=== PATIENT | female | born 1935 | race Caucasian/White ===

== ENCOUNTER 2018-06-07 14:29 | Inpatient (IN) ==
[2018-06-07] MEDS ORDERED: ONDANSETRON 4 MG/2 ML VIAL IV STA (16:06)
[2018-06-07] MEDS ORDERED: PANTOPRAZOLE 40 MG VIAL IV STA (16:06)
[2018-06-07] MEDS ORDERED: METOCLOPRAMIDE 10 MG/2 ML VIAL IV STA (16:06)
[2018-06-07] MEDS ORDERED: DICYCLOMINE 20 MG/2 ML AMP IM ONE (16:06)
[2018-06-07 16:40] LABS: Apearance,Urine Slightly Hazy (Clear); Bacteria,Urine Occasional /HPF (Few); Bilirubin,Urine Negative (Negative); Blood, Urine Negative (Negative); Glucose,Urine (UA) Negative (Negative); Hyaline Casts,Urine 92 /LPF (0-3); Ketones,Urine 5 mg/dL (Negative); Mucus,Urine Occasional /LPF (Occasional); Nitrite,Urine Negative (Negative); Protein,Urine 30 MG/DL; RBC,Urine 1 /HPF (0-4); Squamous Epithelial Cell,Urine Occasional /HPF (0-10); Urine Color Yellow (Yellow); Urine Specific Gravity 1.014 (1.001-1.035); WBC,Urine 2 /HPF (0-6)
[2018-06-07 17:06] LABS: Basophils % 0.4 % (0.0-0.8); Eosinophils # 0.1 10*3/uL (0.0-0.87); Eosinophils % 1.3 % (0.00-10.9); Hemoglobin 13.8 GM/DL (12.0-16.0); Immature Granulocytes % 0.4 %; Immature Granulocytes Absolute 0.04 #; Lymphocytes # 2.5 10*3/uL (1.4-4.0); Mean Corpuscular HGB Conc 33.7 GM/DL (32-36); Mean Corpuscular Hemoglobin 32 PG (27-34); Mean Corpuscular Volume 94.3 FL (87-102); Mean Platelet Volume 9.2 FL (9.6-12.0); Monocytes # 0.9 10*3/uL (0.11-0.8); Monocytes % 8.3 % (1.7-12.7); Neutrophils # 6.8 10*3/uL (1.4-7.4); Neutrophils % 65.6 % (38.7-73.9); Platelet Count 451 T/CUMM (130-400); Red Blood Count 4.35 MC/CUMM (3.8-5.5); Red Cell Distribution Width 12.3 % (9.3-17.3); White Blood Count 10.4 T/CUMM (4-12)
[2018-06-07 17:22] LABS: Alanine Aminotransferase 27 U/L (13-56); Albumin 3.2 G/DL (3.4-5.0); Alkaline Phosphatase 225 U/L (45-117); Amylase 101 U/L (25-115); Aspartate Amino Transferase 40 U/L (0-37); Blood Urea Nitrogen 34 MG/DL (7-18); Calcium 9.8 MG/DL (8.5-10.1); Glucose 83 MG/DL (74-106); Osmolality,Calculated 279.8 MOS/KG (273-304); Potassium 4.8 MMOL/L (3.5-5.1); Sodium 137 MMOL/L (136-145); Total Protein 8.4 G/DL (6.4-8.3); Troponin I < 0.015 NG/ML (0.00-0.045)
[2018-06-07 17:28] LABS: INR 6.5; Partial Thromboplastin Time 60.6 SECS (0-40)
[2018-06-07] MEDS: hydrALAZINE 20 MG/1 ML VIAL IV SCH (19:45)
[2018-06-07] MEDS: SODIUM CHLORIDE 0.9% 1,000 ML IV SCH (19:45)
[2018-06-08] MEDS: hydrALAZINE 20 MG/1 ML VIAL IV SCH ×5 (00:31→23:56)
[2018-06-08 05:27] LABS: Basophils % 0.5 % (0.0-0.8); Eosinophils # 0.1 10*3/uL (0.0-0.87); Eosinophils % 1.5 % (0.00-10.9); Hemoglobin 11.8 GM/DL (12.0-16.0); Immature Granulocytes % 0.4 %; Immature Granulocytes Absolute 0.03 #; Lymphocytes # 1.8 10*3/uL (1.4-4.0); Lymphocytes % 23.5 % (21.3-54.2); Mean Corpuscular HGB Conc 32.8 GM/DL (32-36); Mean Corpuscular Hemoglobin 31 PG (27-34); Mean Corpuscular Volume 95.5 FL (87-102); Mean Platelet Volume 9.1 FL (9.6-12.0); Monocytes # 0.7 10*3/uL (0.11-0.8); Monocytes % 8.9 % (1.7-12.7); Neutrophils # 5.1 10*3/uL (1.4-7.4); Neutrophils % 65.2 % (38.7-73.9); Platelet Count 343 T/CUMM (130-400); Red Blood Count 3.77 MC/CUMM (3.8-5.5); Red Cell Distribution Width 12.5 % (9.3-17.3); White Blood Count 7.8 T/CUMM (4-12)
[2018-06-08] MEDS: LEVOTHYROXINE 25 MCG TABLET PO SCH (05:34)
[2018-06-08 05:53] LABS: PT Patient Result 59.3 SECS
[2018-06-08 05:54] LABS: Partial Thromboplastin Time 66.8 SECS (0-40)
[2018-06-08 05:57] LABS: Calcium 8.8 MG/DL (8.5-10.1); Osmolality,Calculated 285.3 MOS/KG (273-304); Potassium 3.8 MMOL/L (3.5-5.1)
[2018-06-08] MEDS: SODIUM CHLORIDE 0.9% 1,000 ML IV SCH (08:51)
[2018-06-08] MEDS: PANTOPRAZOLE 40 MG VIAL IV SCH (09:18)
[2018-06-08] MEDS: FUROSEMIDE 20 MG/2 ML VIAL IV SCH (09:18)
[2018-06-08] MEDS: ATENOLOL 100 MG TABLET PO SCH (09:19)
[2018-06-08] MEDS: ONDANSETRON 4 MG/2 ML VIAL IV PRN (23:54)
[2018-06-08] MEDS: SODIUM CHLORIDE 0.45% 1,000 ML IV SCH (23:55)
[2018-06-09 05:31] LABS: Basophils % 0.5 % (0.0-0.8); Eosinophils # 0.1 10*3/uL (0.0-0.87); Eosinophils % 1.5 % (0.00-10.9); Hematocrit 35.7 VOL% (35.7-47.0); Hemoglobin 11.9 GM/DL (12.0-16.0); Immature Granulocytes % 0.5 %; Immature Granulocytes Absolute 0.03 #; Lymphocytes # 1.4 10*3/uL (1.4-4.0); Mean Corpuscular HGB Conc 33.3 GM/DL (32-36); Mean Corpuscular Hemoglobin 32 PG (27-34); Mean Corpuscular Volume 95.7 FL (87-102); Mean Platelet Volume 9.1 FL (9.6-12.0); Monocytes # 0.6 10*3/uL (0.11-0.8); Monocytes % 9.1 % (1.7-12.7); Neutrophils # 4.4 10*3/uL (1.4-7.4); Neutrophils % 67.4 % (38.7-73.9); Platelet Count 328 T/CUMM (130-400); Red Blood Count 3.73 MC/CUMM (3.8-5.5); Red Cell Distribution Width 12.4 % (9.3-17.3); White Blood Count 6.6 T/CUMM (4-12)
[2018-06-09] MEDS: hydrALAZINE 20 MG/1 ML VIAL IV SCH ×3 (05:55→17:31)
[2018-06-09 05:57] LABS: Albumin 2.3 G/DL (3.4-5.0); Bilirubin,Total 0.6 MG/DL (0.2-1.0); Calcium 8.3 MG/DL (8.5-10.1); Osmolality,Calculated 283.1 MOS/KG (273-304); Potassium 3.3 MMOL/L (3.5-5.1); Total Protein 6.3 G/DL (6.4-8.3)
[2018-06-09 06:12] LABS: INR 6.8; PT Patient Result 66.5 SECS
[2018-06-09] MEDS: LEVOTHYROXINE 25 MCG TABLET PO SCH (06:45)
[2018-06-09] MEDS: ONDANSETRON 4 MG/2 ML VIAL IV PRN (06:57)
[2018-06-09] MEDS: PANTOPRAZOLE 40 MG VIAL IV SCH (09:05)
[2018-06-09] MEDS: FUROSEMIDE 20 MG/2 ML VIAL IV SCH (09:05)
[2018-06-09] MEDS: ATENOLOL 100 MG TABLET PO SCH (09:09)
[2018-06-09] MEDS: SODIUM CHLORIDE 0.45% 1,000 ML IV SCH (13:11)
[2018-06-09] MEDS ORDERED: PHYTONADIONE 5 MG/5 ML ORAL.SYR PO ONE (13:28)
[2018-06-09] MEDS: POTASSIUM CHLORIDE INJ 40 MEQ in SODIUM CHLORIDE 0.45% 1,000 ML IV SCH (16:25)
[2018-06-10] MEDS: hydrALAZINE 20 MG/1 ML VIAL IV SCH ×3 (00:47→12:57)
[2018-06-10 05:35] LABS: Albumin 2.3 G/DL (3.4-5.0); Bilirubin,Total 1.3 MG/DL (0.2-1.0); Calcium 8.8 MG/DL (8.5-10.1); Osmolality,Calculated 275.4 MOS/KG (273-304); Potassium 3.9 MMOL/L (3.5-5.1); Total Protein 6.2 G/DL (6.4-8.3)
[2018-06-10 05:36] LABS: INR 1.6; PT Patient Result 16.6 SECS
[2018-06-10 05:42] LABS: Basophils % 0.4 % (0.0-0.8); Eosinophils # 0.1 10*3/uL (0.0-0.87); Eosinophils % 1.7 % (0.00-10.9); Hematocrit 35.2 VOL% (35.7-47.0); Immature Granulocytes % 0.4 %; Immature Granulocytes Absolute 0.03 #; Lymphocytes # 1.5 10*3/uL (1.4-4.0); Lymphocytes % 21.4 % (21.3-54.2); Mean Corpuscular HGB Conc 34.1 GM/DL (32-36); Mean Corpuscular Hemoglobin 32 PG (27-34); Mean Corpuscular Volume 93.1 FL (87-102); Mean Platelet Volume 9.3 FL (9.6-12.0); Monocytes # 0.7 10*3/uL (0.11-0.8); Monocytes % 9.8 % (1.7-12.7); Neutrophils # 4.6 10*3/uL (1.4-7.4); Neutrophils % 66.3 % (38.7-73.9); Platelet Count 329 T/CUMM (130-400); Red Blood Count 3.78 MC/CUMM (3.8-5.5); Red Cell Distribution Width 12.5 % (9.3-17.3)
[2018-06-10] MEDS: LEVOTHYROXINE 25 MCG TABLET PO SCH (06:22)
[2018-06-10] MEDS: POTASSIUM CHLORIDE INJ 40 MEQ in SODIUM CHLORIDE 0.45% 1,000 ML IV SCH ×2 (06:24→21:53)
[2018-06-10] MEDS: ATENOLOL 100 MG TABLET PO SCH (09:23)
[2018-06-10] MEDS: FUROSEMIDE 20 MG/2 ML VIAL IV SCH (09:24)
[2018-06-10] MEDS: PANTOPRAZOLE 40 MG VIAL IV SCH (09:27)
[2018-06-10] MEDS ORDERED: POLYETHYLENE GLYCOL POWDER 17 GM PACK PO ONE (16:27)
[2018-06-10] MEDS: ONDANSETRON 4 MG/2 ML VIAL IV PRN (17:58)
[2018-06-11 04:47] LABS: INR 1.4
[2018-06-11 05:36] LABS: Albumin 2.3 G/DL (3.4-5.0); Bilirubin,Total 0.7 MG/DL (0.2-1.0); Calcium 8.4 MG/DL (8.5-10.1); Osmolality,Calculated 278.1 MOS/KG (273-304); Potassium 3.9 MMOL/L (3.5-5.1); Total Protein 6.2 G/DL (6.4-8.3)
[2018-06-11] MEDS: LEVOTHYROXINE 25 MCG TABLET PO SCH (06:23)
[2018-06-11] MEDS ORDERED: LIDOCAINE 2% 5 ML VIAL ONE (10:00)
[2018-06-11] MEDS ORDERED: PROPOFOL 200 MG/20 ML VIAL IV ONE (10:00)
[2018-06-11] MEDS: ATENOLOL 100 MG TABLET PO SCH (11:23)
[2018-06-11] MEDS: PANTOPRAZOLE 40 MG VIAL IV SCH (11:23)
[2018-06-11] MEDS: POTASSIUM CHLORIDE INJ 40 MEQ in SODIUM CHLORIDE 0.45% 1,000 ML IV SCH (12:05)
[2018-06-12] MEDS: ONDANSETRON 4 MG/2 ML VIAL IV PRN ×3 (04:30→16:38)
[2018-06-12] MEDS: POTASSIUM CHLORIDE INJ 40 MEQ in SODIUM CHLORIDE 0.45% 1,000 ML IV SCH ×3 (04:31→17:55)
[2018-06-12 05:17] LABS: Basophils % 0.3 % (0.0-0.8); Eosinophils # 0.1 10*3/uL (0.0-0.87); Eosinophils % 1.3 % (0.00-10.9); Hematocrit 32.2 VOL% (35.7-47.0); Hemoglobin 10.6 GM/DL (12.0-16.0); Immature Granulocytes % 0.3 %; Immature Granulocytes Absolute 0.02 #; Lymphocytes # 1.5 10*3/uL (1.4-4.0); Lymphocytes % 25.5 % (21.3-54.2); Mean Corpuscular HGB Conc 32.9 GM/DL (32-36); Mean Corpuscular Hemoglobin 31 PG (27-34); Mean Platelet Volume 9.2 FL (9.6-12.0); Monocytes # 0.6 10*3/uL (0.11-0.8); Monocytes % 10.2 % (1.7-12.7); Neutrophils # 3.7 10*3/uL (1.4-7.4); Neutrophils % 62.4 % (38.7-73.9); Platelet Count 318 T/CUMM (130-400); Red Blood Count 3.39 MC/CUMM (3.8-5.5)
[2018-06-12 05:22] LABS: PT Patient Result 10.8 SECS
[2018-06-12 05:52] LABS: Albumin 2.1 G/DL (3.4-5.0); Bilirubin,Total 0.6 MG/DL (0.2-1.0); Calcium 8.3 MG/DL (8.5-10.1); Osmolality,Calculated 282.8 MOS/KG (273-304); Potassium 4.3 MMOL/L (3.5-5.1); Total Protein 5.6 G/DL (6.4-8.3)
[2018-06-12] MEDS: LEVOTHYROXINE 25 MCG TABLET PO SCH (06:14)
[2018-06-12] MEDS: PANTOPRAZOLE 40 MG VIAL IV SCH (09:44)
[2018-06-12] MEDS: ATENOLOL 100 MG TABLET PO SCH (09:44)
[2018-06-12] MEDS ORDERED: POLYETHYLENE GLYCOL POWDER 17 GM PACK PO PRN (18:37)
[2018-06-13] MEDS: ONDANSETRON 4 MG/2 ML VIAL IV PRN ×3 (04:58→16:17)
[2018-06-13 05:34] LABS: Basophils % 0.6 % (0.0-0.8); Eosinophils # 0.1 10*3/uL (0.0-0.87); Eosinophils % 1.2 % (0.00-10.9); Hematocrit 33.4 VOL% (35.7-47.0); Hemoglobin 10.8 GM/DL (12.0-16.0); Immature Granulocytes % 0.6 %; Immature Granulocytes Absolute 0.04 #; Lymphocytes # 1.8 10*3/uL (1.4-4.0); Lymphocytes % 24.8 % (21.3-54.2); Mean Corpuscular HGB Conc 32.3 GM/DL (32-36); Mean Corpuscular Hemoglobin 32 PG (27-34); Mean Corpuscular Volume 97.7 FL (87-102); Mean Platelet Volume 8.8 FL (9.6-12.0); Monocytes # 0.6 10*3/uL (0.11-0.8); Monocytes % 8.4 % (1.7-12.7); Neutrophils # 4.7 10*3/uL (1.4-7.4); Neutrophils % 64.4 % (38.7-73.9); Platelet Count 289 T/CUMM (130-400); Red Blood Count 3.42 MC/CUMM (3.8-5.5); Red Cell Distribution Width 13.2 % (9.3-17.3); White Blood Count 7.2 T/CUMM (4-12)
[2018-06-13 06:13] LABS: Albumin 2.5 G/DL (3.4-5.0); Bilirubin,Total 0.9 MG/DL (0.2-1.0); Calcium 8.7 MG/DL (8.5-10.1); Osmolality,Calculated 281.1 MOS/KG (273-304); Potassium 4.4 MMOL/L (3.5-5.1); Total Protein 6.5 G/DL (6.4-8.3)
[2018-06-13] MEDS: LEVOTHYROXINE 25 MCG TABLET PO SCH (07:07)
[2018-06-13] MEDS: ATENOLOL 100 MG TABLET PO SCH (09:05)
[2018-06-13] MEDS: POTASSIUM CHLORIDE INJ 40 MEQ in SODIUM CHLORIDE 0.45% 1,000 ML IV SCH ×2 (09:05→21:34)
[2018-06-13] MEDS: PANTOPRAZOLE 40 MG VIAL IV SCH (09:05)
[2018-06-13] MEDS: ALUM/MAG/SIMETH/LIDO VISC 1:1 30 ML BOTTLE PO SCH ×2 (17:27→21:34)
[2018-06-14] MEDS: ONDANSETRON 4 MG/2 ML VIAL IV PRN (03:58)
[2018-06-14 04:55] LABS: Basophils % 0.3 % (0.0-0.8); Eosinophils # 0.1 10*3/uL (0.0-0.87); Eosinophils % 1.3 % (0.00-10.9); Hematocrit 29.3 VOL% (35.7-47.0); Hemoglobin 9.5 GM/DL (12.0-16.0); Immature Granulocytes % 0.4 %; Immature Granulocytes Absolute 0.03 #; Lymphocytes # 1.6 10*3/uL (1.4-4.0); Lymphocytes % 20.5 % (21.3-54.2); Mean Corpuscular HGB Conc 32.4 GM/DL (32-36); Mean Corpuscular Hemoglobin 31 PG (27-34); Mean Corpuscular Volume 96.7 FL (87-102); Mean Platelet Volume 9.4 FL (9.6-12.0); Monocytes # 0.9 10*3/uL (0.11-0.8); Monocytes % 12.2 % (1.7-12.7); Neutrophils % 65.3 % (38.7-73.9); Platelet Count 247 T/CUMM (130-400); Red Blood Count 3.03 MC/CUMM (3.8-5.5); Red Cell Distribution Width 13.2 % (9.3-17.3); White Blood Count 7.7 T/CUMM (4-12)
[2018-06-14 05:02] LABS: PT Patient Result 10.5 SECS
[2018-06-14] MEDS ORDERED: ceFAZolin 1,000 MG in SYRINGE 1 EACH IV ONE (07:00)
[2018-06-14] MEDS: ALUM/MAG/SIMETH/LIDO VISC 1:1 30 ML BOTTLE PO SCH (07:32)
[2018-06-14] MEDS: LEVOTHYROXINE 25 MCG TABLET PO SCH (07:32)
[2018-06-14] MEDS ORDERED: BUPIVACAINE 0.25% /EPI 10 ML VIAL ONE (08:23)
[2018-06-14] MEDS ORDERED: LIDOCAINE 1%/EPI INJ 20 ML VIAL ONE (08:23)
[2018-06-14] MEDS ORDERED: HEPARIN 5,000 UNIT/1 ML VIAL ONE (08:23)
[2018-06-14] MEDS ORDERED: PROPOFOL 200 MG/20 ML VIAL IV ONE (10:38)
[2018-06-14] MEDS ORDERED: fentaNYL 100 MCG/2 ML VIAL ONE (10:39)
[2018-06-14] MEDS ORDERED: MIDAZOLAM 2 MG/2 ML VIAL ONE (10:39)
[2018-06-14] MEDS: ATENOLOL 100 MG TABLET PO SCH (11:16)
[2018-06-14] MEDS: PANTOPRAZOLE 40 MG VIAL IV SCH (11:16)
[2018-06-14 13:19] VITALS: BP 116/66
[2018-06-14] MEDS: POTASSIUM CHLORIDE INJ 40 MEQ in SODIUM CHLORIDE 0.45% 1,000 ML IV SCH (13:21)
== END 2018-06-14 14:07 | disposition home health service (06) | DRG 374 ==
LOC: N.ED 14:29 → N.EDINP 18:17 → N.2E 19:02
PROVIDERS: ADMIT Internal Medicine; ATTEND Internal Medicine

== ENCOUNTER 2018-07-30 15:22 | Inpatient (IN) ==
[2018-07-30 18:22] LABS: Basophils % 0.4 % (0.0-0.8); Eosinophils # 0.2 10*3/uL (0.0-0.87); Eosinophils % 1.7 % (0.00-10.9); Hemoglobin 11.7 GM/DL (12.0-16.0); Immature Granulocytes % 2.1 %; Immature Granulocytes Absolute 0.19 #; Lymphocytes # 2.6 10*3/uL (1.4-4.0); Lymphocytes % 29.1 % (21.3-54.2); Mean Corpuscular HGB Conc 32.5 GM/DL (32-36); Mean Corpuscular Hemoglobin 32 PG (27-34); Mean Platelet Volume 9.4 FL (9.6-12.0); Monocytes # 0.2 10*3/uL (0.11-0.8); Monocytes % 2.5 % (1.7-12.7); Neutrophils # 5.8 10*3/uL (1.4-7.4); Neutrophils % 64.2 % (38.7-73.9); Platelet Count 392 T/CUMM (130-400); Red Blood Count 3.71 MC/CUMM (3.8-5.5); Red Cell Distribution Width 13.9 % (9.3-17.3); White Blood Count 9.1 T/CUMM (4-12)
[2018-07-30] MEDS ORDERED: SODIUM CHLORIDE 0.9% 1,000 ML IV STA ×2 (18:22→20:18)
[2018-07-30] MEDS ORDERED: ONDANSETRON 4 MG/2 ML VIAL IV ONE (18:22)
[2018-07-30 18:42] LABS: Bilirubin,Total 0.6 MG/DL (0.2-1.0); Calcium 9.1 MG/DL (8.5-10.1); Osmolality,Calculated 288.5 MOS/KG (273-304); Total Protein 7.7 G/DL (6.4-8.3)
[2018-07-30 18:47] LABS: Potassium 6.8 MMOL/L (3.5-5.1)
[2018-07-30] MEDS ORDERED: DEXTROSE 50% 25 GM/50 ML VIAL IV STA (19:51)
[2018-07-30] MEDS ORDERED: INSULIN REGULAR 100 UNIT/ML SUBCUT STA (19:51)
[2018-07-30] MEDS ORDERED: DEXTROSE 50% 25 GM/50 ML SYRINGE IV ONE (19:55)
[2018-07-30 20:58] LABS: Apearance,Urine CLEAR (Clear); Bilirubin,Urine Negative (Negative); Blood, Urine Negative (Negative); Glucose,Urine (UA) >=500 mg/dL (Negative); Hyaline Casts,Urine 3 /LPF (0-3); Ketones,Urine Negative (Negative); Mucus,Urine Occasional /LPF (Occasional); Nitrite,Urine Negative (Negative); Protein,Urine Negative; Squamous Epithelial Cell,Urine Occasional /HPF (0-10); Urine Color Yellow (Yellow); Urine Specific Gravity 1.013 (1.001-1.035); Urine Urobilinogen < 2.0 EU/DL (0.2-1.0); WBC,Urine 1 /HPF (0-6)
[2018-07-30 21:01] LABS: Band Neutrophils 1 % (0-10); Eosinophils 1 % (0-10); Lymphocytes 26 % (20-55); Metamyelocytes 1 %; Segmented Neutrophils 71 % (50-85); Total Cells Counted 100
[2018-07-30 21:02] LABS: Anisocytosis 1+; Macrocytosis Slight
[2018-07-30 21:03] LABS: Ovalocytes Few; Spherocytes Slight
[2018-07-30 21:04] LABS: Platelet Estimate Normal
[2018-07-30 23:23] LABS: Basophils % 0.3 % (0.0-0.8); Eosinophils # 0.1 10*3/uL (0.0-0.87); Eosinophils % 1.7 % (0.00-10.9); Hematocrit 30.3 VOL% (35.7-47.0); Hemoglobin 9.8 GM/DL (12.0-16.0); Immature Granulocytes % 2.9 %; Mean Corpuscular HGB Conc 32.3 GM/DL (32-36); Mean Corpuscular Hemoglobin 32 PG (27-34); Mean Corpuscular Volume 98.4 FL (87-102); Mean Platelet Volume 9.6 FL (9.6-12.0); Monocytes # 0.2 10*3/uL (0.11-0.8); Monocytes % 2.6 % (1.7-12.7); Neutrophils # 4.4 10*3/uL (1.4-7.4); Neutrophils % 63.5 % (38.7-73.9); Platelet Count 283 T/CUMM (130-400); Red Blood Count 3.08 MC/CUMM (3.8-5.5); Red Cell Distribution Width 13.9 % (9.3-17.3); White Blood Count 6.9 T/CUMM (4-12)
[2018-07-30 23:39] LABS: Albumin 2.5 G/DL (3.4-5.0); Bilirubin,Total 0.4 MG/DL (0.2-1.0); Calcium 6.7 MG/DL (8.5-10.1); Osmolality,Calculated 296.5 MOS/KG (273-304); Potassium 5.2 MMOL/L (3.5-5.1); Total Protein 6.4 G/DL (6.4-8.3)
[2018-07-30] MEDS: DEXTROSE 5% NACL 0.45% 1,000 ML IV SCH (23:46)
[2018-07-31] MEDS: ONDANSETRON 4 MG/2 ML VIAL IV PRN (06:07)
[2018-07-31] MEDS: DEXTROSE 5% NACL 0.45% 1,000 ML IV SCH ×4 (06:08→20:15)
[2018-07-31] MEDS: ACETAMINOPHEN 325 MG TABLET PO PRN (06:12)
[2018-07-31] MEDS ORDERED: PANTOPRAZOLE 40 MG TABLET PO SCH (09:00)
[2018-07-31] MEDS: SODIUM POLYSTYRENE SULFATE 15 GM/60 ML BOTTLE PO SCH ×2 (09:57→13:48)
[2018-07-31] MEDS: HYDROmorphone 2 MG/1 ML VIAL IV PRN (09:59)
[2018-07-31] MEDS ORDERED: PROMETHAZINE 25 MG/1 ML VIAL IM PRN (11:49)
[2018-07-31 13:15] LABS: Basophils % 0.3 % (0.0-0.8); Eosinophils # 0.1 10*3/uL (0.0-0.87); Eosinophils % 1.8 % (0.00-10.9); Hemoglobin 9.7 GM/DL (12.0-16.0); Immature Granulocytes % 1.7 %; Immature Granulocytes Absolute 0.13 #; Lymphocytes # 1.7 10*3/uL (1.4-4.0); Lymphocytes % 22.5 % (21.3-54.2); Mean Corpuscular HGB Conc 32.3 GM/DL (32-36); Mean Corpuscular Hemoglobin 32 PG (27-34); Mean Platelet Volume 9.4 FL (9.6-12.0); Monocytes # 0.1 10*3/uL (0.11-0.8); Monocytes % 1.7 % (1.7-12.7); Neutrophils # 5.5 10*3/uL (1.4-7.4); Platelet Count 290 T/CUMM (130-400); Red Blood Count 3.06 MC/CUMM (3.8-5.5); Red Cell Distribution Width 13.9 % (9.3-17.3); White Blood Count 7.6 T/CUMM (4-12)
[2018-07-31 13:38] LABS: Albumin 2.7 G/DL (3.4-5.0); Bilirubin,Total 0.4 MG/DL (0.2-1.0); Calcium 7.9 MG/DL (8.5-10.1); Potassium 4.4 MMOL/L (3.5-5.1); Total Protein 5.9 G/DL (6.4-8.3)
[2018-07-31] MEDS: PANTOPRAZOLE 40 MG VIAL IV SCH (13:49)
[2018-07-31 18:38] LABS: Eosinophils 1 % (0-10); Lymphocytes 14 % (20-55); Segmented Neutrophils 84 % (50-85); Total Cells Counted 100
[2018-07-31 18:40] LABS: Platelet Estimate Normal
[2018-08-01] MEDS: DEXTROSE 5% NACL 0.45% 1,000 ML IV SCH ×5 (03:12→17:54)
[2018-08-01 05:40] LABS: Basophils % 0.4 % (0.0-0.8); Eosinophils # 0.2 10*3/uL (0.0-0.87); Eosinophils % 2.1 % (0.00-10.9); Hematocrit 30.3 VOL% (35.7-47.0); Hemoglobin 9.3 GM/DL (12.0-16.0); Immature Granulocytes % 0.8 %; Immature Granulocytes Absolute 0.06 #; Lymphocytes # 2.1 10*3/uL (1.4-4.0); Lymphocytes % 29.1 % (21.3-54.2); Mean Corpuscular HGB Conc 30.7 GM/DL (32-36); Mean Corpuscular Hemoglobin 31 PG (27-34); Mean Corpuscular Volume 99.7 FL (87-102); Mean Platelet Volume 9.7 FL (9.6-12.0); Monocytes # 0.2 10*3/uL (0.11-0.8); Monocytes % 2.2 % (1.7-12.7); Neutrophils # 4.7 10*3/uL (1.4-7.4); Neutrophils % 65.4 % (38.7-73.9); Platelet Count 291 T/CUMM (130-400); Red Blood Count 3.04 MC/CUMM (3.8-5.5); Red Cell Distribution Width 14.3 % (9.3-17.3); White Blood Count 7.2 T/CUMM (4-12)
[2018-08-01 06:54] LABS: Band Neutrophils 2 % (0-10); Eosinophils 3 % (0-10); Lymphocytes 28 % (20-55); Segmented Neutrophils 65 % (50-85); Total Cells Counted 100
[2018-08-01 06:55] LABS: Macrocytosis Slight; Ovalocytes Few
[2018-08-01 06:56] LABS: Acanthocytes Few; Platelet Estimate Normal
[2018-08-01 07:06] LABS: Albumin 2.6 G/DL (3.4-5.0); Bilirubin,Total 1.28 MG/DL (0.2-1.0); Calcium 7.5 MG/DL (8.5-10.1); Osmolality,Calculated 287.4 MOS/KG (273-304); Potassium 4.6 MMOL/L (3.5-5.1); Total Protein 5.6 G/DL (6.4-8.3)
[2018-08-01] MEDS: ONDANSETRON 4 MG/2 ML VIAL IV PRN ×2 (07:30→17:49)
[2018-08-01] MEDS: HYDROmorphone 2 MG/1 ML VIAL IV PRN ×2 (08:58→19:24)
[2018-08-01] MEDS: PANTOPRAZOLE 40 MG VIAL IV SCH (09:01)
[2018-08-02] MEDS: ONDANSETRON 4 MG/2 ML VIAL IV PRN (00:34)
[2018-08-02] MEDS: DEXTROSE 5% NACL 0.45% 1,000 ML IV SCH ×2 (00:34→09:09)
[2018-08-02 05:13] LABS: Basophils % 0.3 % (0.0-0.8); Eosinophils # 0.1 10*3/uL (0.0-0.87); Eosinophils % 2.1 % (0.00-10.9); Hematocrit 24.5 VOL% (35.7-47.0); Hemoglobin 7.6 GM/DL (12.0-16.0); Immature Granulocytes % 0.6 %; Immature Granulocytes Absolute 0.02 #; Lymphocytes # 1.1 10*3/uL (1.4-4.0); Lymphocytes % 33.3 % (21.3-54.2); Mean Corpuscular Hemoglobin 31 PG (27-34); Mean Corpuscular Volume 98.8 FL (87-102); Mean Platelet Volume 9.7 FL (9.6-12.0); Monocytes # 0.1 10*3/uL (0.11-0.8); Monocytes % 3.5 % (1.7-12.7); Neutrophils % 60.2 % (38.7-73.9); Platelet Count 181 T/CUMM (130-400); Red Blood Count 2.48 MC/CUMM (3.8-5.5); Red Cell Distribution Width 13.9 % (9.3-17.3); White Blood Count 3.4 T/CUMM (4-12)
[2018-08-02 05:27] LABS: Calcium 7.3 MG/DL (8.5-10.1); Osmolality,Calculated 281.4 MOS/KG (273-304)
[2018-08-02 05:48] LABS: Ovalocytes Few
[2018-08-02 05:49] LABS: Acanthocytes Few; Burr Cells Slight; Hypochromasia Slight; Macrocytosis Slight; Platelet Estimate Normal
[2018-08-02] MEDS ORDERED: SODIUM CHLORIDE 0.9% 1,000 ML IV PRN (09:10)
[2018-08-02] MEDS: PANTOPRAZOLE 40 MG VIAL IV SCH (10:40)
[2018-08-02] MEDS: DEXT 5% NACL 0.45% KCL 20 MEQ 20 MEQ/1,000 ML BAG IV SCH (10:41)
[2018-08-02] MEDS ORDERED: POTASSIUM CHLORIDE 20 MEQ PACK PO ONE (21:00)
[2018-08-03] MEDS: ONDANSETRON 4 MG/2 ML VIAL IV PRN ×2 (06:01→15:40)
[2018-08-03] MEDS: DEXT 5% NACL 0.45% KCL 20 MEQ 20 MEQ/1,000 ML BAG IV SCH ×4 (06:04→20:52)
[2018-08-03 07:28] LABS: Calcium 7.8 MG/DL (8.5-10.1); Osmolality,Calculated 284.8 MOS/KG (273-304); Potassium 3.8 MMOL/L (3.5-5.1)
[2018-08-03 07:37] LABS: Basophils % 0.5 % (0.0-0.8); Eosinophils # 0.1 10*3/uL (0.0-0.87); Eosinophils % 2.9 % (0.00-10.9); Hematocrit 32.2 VOL% (35.7-47.0); Hemoglobin 10.7 GM/DL (12.0-16.0); Lymphocytes # 0.9 10*3/uL (1.4-4.0); Lymphocytes % 41.1 % (21.3-54.2); Mean Corpuscular HGB Conc 33.2 GM/DL (32-36); Mean Corpuscular Hemoglobin 31 PG (27-34); Mean Corpuscular Volume 94.4 FL (87-102); Mean Platelet Volume 9.2 FL (9.6-12.0); Monocytes # 0.1 10*3/uL (0.11-0.8); Monocytes % 5.3 % (1.7-12.7); Neutrophils # 1.1 10*3/uL (1.4-7.4); Neutrophils % 50.2 % (38.7-73.9); Platelet Count 152 T/CUMM (130-400); Red Blood Count 3.41 MC/CUMM (3.8-5.5); Red Cell Distribution Width 14.5 % (9.3-17.3); White Blood Count 2.1 T/CUMM (4-12)
[2018-08-03 08:04] LABS: Hypochromasia 1+; Macrocytosis Slight; Ovalocytes Slight; Platelet Estimate Normal
[2018-08-03] MEDS: PANTOPRAZOLE 40 MG VIAL IV SCH (08:33)
[2018-08-03 08:47] LABS: Bilirubin,Total 0.9 MG/DL (0.2-1.0); Calcium 7.6 MG/DL (8.5-10.1); Osmolality,Calculated 281.1 MOS/KG (273-304); Potassium 3.8 MMOL/L (3.5-5.1); Total Protein 5.5 G/DL (6.4-8.3)
[2018-08-03] MEDS ORDERED: ONDANSETRON 4 MG/2 ML VIAL ONE (09:00)
[2018-08-03] MEDS ORDERED: NEOSTIGMINE 10 MG/10 ML VIAL ONE (09:00)
[2018-08-03] MEDS ORDERED: ETOMIDATE 20 MG/10 ML VIAL IV ONE (09:00)
[2018-08-03] MEDS ORDERED: PHENYLEPHRINE 1 MG/10 ML SYRINGE IV ONE (09:00)
[2018-08-03] MEDS ORDERED: GLYCOPYRROLATE 0.4 MG/2 ML VIAL ONE (09:00)
[2018-08-03] MEDS ORDERED: ROCURONIUM 100 MG/10 ML VIAL IV ONE (09:00)
[2018-08-03] MEDS ORDERED: ESMOLOL 100 MG/10 ML VIAL IV ONE (09:00)
[2018-08-03] MEDS ORDERED: fentaNYL 100 MCG/2 ML VIAL ONE (12:10)
[2018-08-03] MEDS ORDERED: INDOMETHACIN SUPP 50 MG SUPP RECTAL ONE (12:28)
[2018-08-03] MEDS ORDERED: GLUCAGON 1 MG VIAL ONE (14:04)
[2018-08-03] MEDS ORDERED: NALOXONE 0.4 MG/ML VIAL ONE (14:31)
[2018-08-03] MEDS: HYDROmorphone 2 MG/1 ML VIAL IV PRN (17:16)
[2018-08-04] MEDS: DEXT 5% NACL 0.45% KCL 20 MEQ 20 MEQ/1,000 ML BAG IV SCH ×3 (05:03→20:57)
[2018-08-04 05:04] LABS: Eosinophils % 3.9 % (0.00-10.9); Hematocrit 29.9 VOL% (35.7-47.0); Hemoglobin 9.6 GM/DL (12.0-16.0); Lymphocytes # 0.8 10*3/uL (1.4-4.0); Lymphocytes % 76.7 % (21.3-54.2); Mean Corpuscular HGB Conc 32.1 GM/DL (32-36); Mean Corpuscular Hemoglobin 30 PG (27-34); Mean Corpuscular Volume 94.6 FL (87-102); Mean Platelet Volume 9.9 FL (9.6-12.0); Monocytes # 0.1 10*3/uL (0.11-0.8); Monocytes % 5.8 % (1.7-12.7); Neutrophils # 0.1 10*3/uL (1.4-7.4); Neutrophils % 13.6 % (38.7-73.9); Platelet Count 146 T/CUMM (130-400); Red Blood Count 3.16 MC/CUMM (3.8-5.5); Red Cell Distribution Width 14.2 % (9.3-17.3)
[2018-08-04 05:07] LABS: Albumin 1.7 G/DL (3.4-5.0); Bilirubin,Total 0.6 MG/DL (0.2-1.0); Calcium 7.3 MG/DL (8.5-10.1); Osmolality,Calculated 281.3 MOS/KG (273-304); Potassium 3.9 MMOL/L (3.5-5.1); Total Protein 4.6 G/DL (6.4-8.3)
[2018-08-04 06:39] LABS: Atypical Lymphocytes Few; Band Neutrophils 2 % (0-10); Eosinophils 3 % (0-10); Lymphocytes 67 % (20-55); Segmented Neutrophils 20 % (50-85); Total Cells Counted 100
[2018-08-04 06:40] LABS: Hypochromasia 1+; Macrocytosis Slight; Ovalocytes Few; Platelet Estimate Adequate
[2018-08-04] MEDS: PANTOPRAZOLE 40 MG VIAL IV SCH (09:09)
[2018-08-04] MEDS: ONDANSETRON 4 MG/2 ML VIAL IV PRN (09:10)
[2018-08-04] MEDS: FILGRASTIM-SNDZ 300 MCG/0.5 ML SYRINGE SUBCUT SCH (12:49)
[2018-08-04] MEDS: HYDROmorphone 2 MG/1 ML VIAL IV PRN (23:20)
[2018-08-05] MEDS: DEXT 5% NACL 0.45% KCL 20 MEQ 20 MEQ/1,000 ML BAG IV SCH ×3 (03:41→19:58)
[2018-08-05 04:19] LABS: Eosinophils % 3.9 % (0.00-10.9); Hematocrit 30.1 VOL% (35.7-47.0); Hemoglobin 9.7 GM/DL (12.0-16.0); Immature Granulocytes Absolute 0.01 #; Lymphocytes # 0.8 10*3/uL (1.4-4.0); Lymphocytes % 77.5 % (21.3-54.2); Mean Corpuscular HGB Conc 32.2 GM/DL (32-36); Mean Corpuscular Hemoglobin 31 PG (27-34); Mean Corpuscular Volume 95.3 FL (87-102); Mean Platelet Volume 9.3 FL (9.6-12.0); Monocytes # 0.1 10*3/uL (0.11-0.8); Monocytes % 10.8 % (1.7-12.7); Neutrophils # 0.1 10*3/uL (1.4-7.4); Neutrophils % 5.8 % (38.7-73.9); Platelet Count 152 T/CUMM (130-400); Red Blood Count 3.16 MC/CUMM (3.8-5.5)
[2018-08-05 04:38] LABS: Albumin 1.7 G/DL (3.4-5.0); Bilirubin,Total 0.8 MG/DL (0.2-1.0); Calcium 7.2 MG/DL (8.5-10.1); Osmolality,Calculated 276.4 MOS/KG (273-304); Potassium 4.5 MMOL/L (3.5-5.1); Total Protein 4.6 G/DL (6.4-8.3)
[2018-08-05 06:04] LABS: Anisocytosis 1+; Band Neutrophils 2 % (0-10); Eosinophils 3 % (0-10); Lymphocytes 76 % (20-55); Macrocytosis 1+; Metamyelocytes 2 %; Platelet Estimate Adequate; Segmented Neutrophils 4 % (50-85); Total Cells Counted 100
[2018-08-05] MEDS: HYDROmorphone 2 MG/1 ML VIAL IV PRN (07:33)
[2018-08-05] MEDS: PANTOPRAZOLE 40 MG VIAL IV SCH (09:35)
[2018-08-05] MEDS: FILGRASTIM-SNDZ 300 MCG/0.5 ML SYRINGE SUBCUT SCH (09:35)
[2018-08-05] MEDS: ONDANSETRON 4 MG/2 ML VIAL IV PRN (18:05)
[2018-08-06] MEDS: ONDANSETRON 4 MG/2 ML VIAL IV PRN ×5 (00:55→22:34)
[2018-08-06] MEDS: DEXT 5% NACL 0.45% KCL 20 MEQ 20 MEQ/1,000 ML BAG IV SCH ×3 (04:06→22:36)
[2018-08-06 07:17] LABS: Basophils % 0.7 % (0.0-0.8); Eosinophils # 0.1 10*3/uL (0.0-0.87); Eosinophils % 3.6 % (0.00-10.9); Hematocrit 29.4 VOL% (35.7-47.0); Hemoglobin 9.7 GM/DL (12.0-16.0); Immature Granulocytes % 0.7 %; Immature Granulocytes Absolute 0.01 #; Lymphocytes # 0.9 10*3/uL (1.4-4.0); Lymphocytes % 61.4 % (21.3-54.2); Mean Corpuscular Hemoglobin 31 PG (27-34); Mean Corpuscular Volume 93.9 FL (87-102); Mean Platelet Volume 9.3 FL (9.6-12.0); Monocytes # 0.3 10*3/uL (0.11-0.8); Monocytes % 23.6 % (1.7-12.7); Neutrophils # 0.1 10*3/uL (1.4-7.4); Platelet Count 170 T/CUMM (130-400); Red Blood Count 3.13 MC/CUMM (3.8-5.5); Red Cell Distribution Width 14.5 % (9.3-17.3); White Blood Count 1.4 T/CUMM (4-12)
[2018-08-06 07:38] LABS: Albumin 1.7 G/DL (3.4-5.0); Bilirubin,Total 0.6 MG/DL (0.2-1.0); Calcium 7.4 MG/DL (8.5-10.1); Osmolality,Calculated 272.7 MOS/KG (273-304); Potassium 4.5 MMOL/L (3.5-5.1); Total Protein 4.2 G/DL (6.4-8.3)
[2018-08-06 08:21] LABS: Atypical Lymphocytes Few; Eosinophils 9 % (0-10); Hypochromasia 1+; Lymphocytes 64 % (20-55); Macrocytosis Slight; Ovalocytes Slight; Platelet Estimate Adequate; Segmented Neutrophils 3 % (50-85); Total Cells Counted 100
[2018-08-06] MEDS: PANTOPRAZOLE 40 MG VIAL IV SCH (09:02)
[2018-08-06] MEDS: FILGRASTIM-SNDZ 300 MCG/0.5 ML SYRINGE SUBCUT SCH (09:03)
[2018-08-07 03:47] LABS: Basophils % 0.3 % (0.0-0.8); Eosinophils # 0.1 10*3/uL (0.0-0.87); Hematocrit 30.2 VOL% (35.7-47.0); Hemoglobin 9.9 GM/DL (12.0-16.0); Immature Granulocytes % 0.3 %; Immature Granulocytes Absolute 0.01 #; Lymphocytes # 1.4 10*3/uL (1.4-4.0); Lymphocytes % 46.8 % (21.3-54.2); Mean Corpuscular HGB Conc 32.8 GM/DL (32-36); Mean Corpuscular Hemoglobin 31 PG (27-34); Mean Platelet Volume 9.2 FL (9.6-12.0); Monocytes # 0.5 10*3/uL (0.11-0.8); Monocytes % 16.8 % (1.7-12.7); Neutrophils # 0.9 10*3/uL (1.4-7.4); Neutrophils % 31.8 % (38.7-73.9); Platelet Count 185 T/CUMM (130-400); Red Blood Count 3.18 MC/CUMM (3.8-5.5); Red Cell Distribution Width 14.6 % (9.3-17.3)
[2018-08-07 04:18] LABS: Eosinophils 3 % (0-10); Lymphocytes 52 % (20-55); Segmented Neutrophils 20 % (50-85); Total Cells Counted 100
[2018-08-07 04:19] LABS: Hypochromasia Slight; Platelet Estimate Adequate; Polychromasia Few
[2018-08-07] MEDS: ALBUMIN 25% 25 GM in PREMIX 1 EACH IV SCH ×3 (05:26→21:11)
[2018-08-07] MEDS: METOPROLOL TARTRATE 5 MG/5 ML VIAL IV SCH ×4 (05:27→22:22)
[2018-08-07] MEDS: ONDANSETRON 4 MG/2 ML VIAL IV PRN ×5 (05:44→22:19)
[2018-08-07] MEDS: DEXT 5% NACL 0.45% KCL 20 MEQ 20 MEQ/1,000 ML BAG IV SCH ×2 (05:47→22:57)
[2018-08-07] MEDS: FILGRASTIM-SNDZ 300 MCG/0.5 ML SYRINGE SUBCUT SCH (09:39)
[2018-08-07] MEDS: PANTOPRAZOLE 40 MG VIAL IV SCH (09:39)
[2018-08-07] MEDS: ZINC OXIDE PASTE 113 GM TUBE TOP SCH ×2 (12:42→21:11)
[2018-08-08] MEDS: ACETAMINOPHEN 325 MG TABLET PO PRN (02:32)
[2018-08-08] MEDS: ONDANSETRON 4 MG/2 ML VIAL IV PRN ×4 (02:34→22:54)
[2018-08-08] MEDS: DEXT 5% NACL 0.45% KCL 20 MEQ 20 MEQ/1,000 ML BAG IV SCH ×3 (02:36→17:22)
[2018-08-08] MEDS: ALBUMIN 25% 25 GM in PREMIX 1 EACH IV SCH ×3 (05:23→21:40)
[2018-08-08] MEDS: METOPROLOL TARTRATE 5 MG/5 ML VIAL IV SCH ×3 (05:27→22:54)
[2018-08-08 07:00] LABS: Albumin 3.5 G/DL (3.4-5.0); Bilirubin,Total 0.6 MG/DL (0.2-1.0); Calcium 8.4 MG/DL (8.5-10.1); Osmolality,Calculated 278.1 MOS/KG (273-304); Potassium 3.8 MMOL/L (3.5-5.1); Total Protein 5.9 G/DL (6.4-8.3)
[2018-08-08 07:01] LABS: Basophils % 0.6 % (0.0-0.8); Eosinophils # 0.1 10*3/uL (0.0-0.87); Eosinophils % 2.4 % (0.00-10.9); Hematocrit 28.2 VOL% (35.7-47.0); Hemoglobin 9.4 GM/DL (12.0-16.0); Immature Granulocytes % 1.5 %; Immature Granulocytes Absolute 0.08 #; Lymphocytes # 1.8 10*3/uL (1.4-4.0); Lymphocytes % 34.3 % (21.3-54.2); Mean Corpuscular HGB Conc 33.3 GM/DL (32-36); Mean Corpuscular Hemoglobin 32 PG (27-34); Mean Corpuscular Volume 94.6 FL (87-102); Mean Platelet Volume 9.4 FL (9.6-12.0); Monocytes # 0.8 10*3/uL (0.11-0.8); Monocytes % 14.3 % (1.7-12.7); Neutrophils # 2.5 10*3/uL (1.4-7.4); Neutrophils % 46.9 % (38.7-73.9); Platelet Count 198 T/CUMM (130-400); Red Blood Count 2.98 MC/CUMM (3.8-5.5); Red Cell Distribution Width 14.9 % (9.3-17.3); White Blood Count 5.3 T/CUMM (4-12)
[2018-08-08 07:44] LABS: Band Neutrophils 36 % (0-10); Eosinophils 2 % (0-10); Lymphocytes 35 % (20-55); Platelet Estimate Normal; Segmented Neutrophils 18 % (50-85); Total Cells Counted 100
[2018-08-08 07:45] LABS: Anisocytosis 1+; Basophilic Stippling Slight
[2018-08-08] MEDS: ZINC OXIDE PASTE 113 GM TUBE TOP SCH ×2 (09:02→21:41)
[2018-08-08] MEDS: FILGRASTIM-SNDZ 300 MCG/0.5 ML SYRINGE SUBCUT SCH (09:02)
[2018-08-08] MEDS: PANTOPRAZOLE 40 MG VIAL IV SCH (09:03)
[2018-08-08 12:13] LABS: Amorphous Crystals,Urine Occasional /HPF (Few); Apearance,Urine Slightly Hazy (Clear); Bilirubin,Urine Negative (Negative); Blood, Urine Small mg/dL (Negative); Glucose,Urine (UA) Negative (Negative); Ketones,Urine Negative (Negative); Nitrite,Urine Negative (Negative); Protein,Urine Negative; RBC,Urine 1 /HPF (0-4); Squamous Epithelial Cell,Urine Occasional /HPF (0-10); Transitional Epi Cells,Urine Occasional /HPF (<1); Urine Color Straw (Yellow); Urine Specific Gravity 1.002 (1.001-1.035); Urine Urobilinogen < 2.0 EU/DL (0.2-1.0); WBC,Urine 19 /HPF (0-6)
[2018-08-09 04:59] LABS: Basophils % 0.2 % (0.0-0.8); Eosinophils # 0.2 10*3/uL (0.0-0.87); Eosinophils % 1.2 % (0.00-10.9); Hematocrit 32.8 VOL% (35.7-47.0); Hemoglobin 10.2 GM/DL (12.0-16.0); Immature Granulocytes % 2.8 %; Immature Granulocytes Absolute 0.34 #; Lymphocytes # 2.4 10*3/uL (1.4-4.0); Lymphocytes % 19.8 % (21.3-54.2); Mean Corpuscular HGB Conc 31.1 GM/DL (32-36); Mean Corpuscular Hemoglobin 30 PG (27-34); Mean Corpuscular Volume 95.3 FL (87-102); Mean Platelet Volume 10.6 FL (9.6-12.0); Monocytes # 1.2 10*3/uL (0.11-0.8); Platelet Count 212 T/CUMM (130-400); Red Blood Count 3.44 MC/CUMM (3.8-5.5); Red Cell Distribution Width 15.3 % (9.3-17.3); White Blood Count 12.1 T/CUMM (4-12)
[2018-08-09] MEDS: ALBUMIN 25% 25 GM in PREMIX 1 EACH IV SCH ×3 (05:10→20:35)
[2018-08-09] MEDS: METOPROLOL TARTRATE 5 MG/5 ML VIAL IV SCH ×4 (05:11→23:16)
[2018-08-09 05:13] LABS: Albumin 3.9 G/DL (3.4-5.0); Bilirubin,Total 0.6 MG/DL (0.2-1.0); Calcium 8.3 MG/DL (8.5-10.1); Osmolality,Calculated 277.4 MOS/KG (273-304); Potassium 3.8 MMOL/L (3.5-5.1); Total Protein 6.3 G/DL (6.4-8.3)
[2018-08-09] MEDS: ONDANSETRON 4 MG/2 ML VIAL IV PRN ×4 (05:18→23:22)
[2018-08-09 05:42] LABS: Band Neutrophils 9 % (0-10); Eosinophils 1 % (0-10); Lymphocytes 19 % (20-55); Metamyelocytes 1 %; Nucleated Red Blood Cells 1 (0-5); Segmented Neutrophils 58 % (50-85); Total Cells Counted 100
[2018-08-09 05:45] LABS: Platelet Estimate Normal
[2018-08-09 05:46] LABS: Hypochromasia 2+
[2018-08-09] MEDS: DEXT 5% NACL 0.45% KCL 20 MEQ 20 MEQ/1,000 ML BAG IV SCH ×2 (07:51→21:47)
[2018-08-09] MEDS ORDERED: HYDROmorphone 2 MG/1 ML VIAL IV PRN (08:54)
[2018-08-09] MEDS: PANTOPRAZOLE 40 MG VIAL IV SCH (09:51)
[2018-08-09] MEDS: ZINC OXIDE PASTE 113 GM TUBE TOP SCH ×2 (09:55→21:47)
[2018-08-09] MEDS: LEVOFLOXACIN INJ 750 MG in PREMIX 1 EACH IV SCH (09:55)
[2018-08-09] MEDS ORDERED: PHENYLEPHRINE 1 MG/10 ML SYRINGE IV ONE (13:25)
[2018-08-09] MEDS ORDERED: LIDOCAINE 100 MG/5 ML SYRINGE ONE (13:25)
[2018-08-09] MEDS ORDERED: PROPOFOL 200 MG/20 ML VIAL IV ONE (13:25)
[2018-08-09] MEDS ORDERED: ETOMIDATE 20 MG/10 ML VIAL IV ONE (13:25)
[2018-08-09] MEDS ORDERED: SUCCINYLCHOLINE 200 MG/10 ML VIAL ONE (13:25)
[2018-08-09] MEDS: METOCLOPRAMIDE 10 MG/2 ML VIAL IV SCH ×2 (14:41→21:45)
[2018-08-10] MEDS: METOPROLOL TARTRATE 5 MG/5 ML VIAL IV SCH ×3 (03:47→10:14)
[2018-08-10] MEDS: ALBUMIN 25% 25 GM in PREMIX 1 EACH IV SCH (05:27)
[2018-08-10 06:40] LABS: Basophils # 0.1 10*3/uL (0.0-0.2); Basophils % 0.4 % (0.0-0.8); Eosinophils % 0.3 % (0.00-10.9); Hematocrit 32.3 VOL% (35.7-47.0); Hemoglobin 10.5 GM/DL (12.0-16.0); Immature Granulocytes % 1.6 %; Immature Granulocytes Absolute 0.23 #; Lymphocytes % 13.9 % (21.3-54.2); Mean Corpuscular HGB Conc 32.5 GM/DL (32-36); Mean Corpuscular Hemoglobin 31 PG (27-34); Mean Platelet Volume 9.5 FL (9.6-12.0); Monocytes # 1.1 10*3/uL (0.11-0.8); Monocytes % 7.9 % (1.7-12.7); Neutrophils # 10.8 10*3/uL (1.4-7.4); Neutrophils % 75.9 % (38.7-73.9); Platelet Count 225 T/CUMM (130-400); Red Cell Distribution Width 15.5 % (9.3-17.3); White Blood Count 14.3 T/CUMM (4-12)
[2018-08-10] MEDS: METOCLOPRAMIDE 10 MG/2 ML VIAL IV SCH (06:46)
[2018-08-10 06:53] LABS: Albumin 4.6 G/DL (3.4-5.0); Bilirubin,Total 0.7 MG/DL (0.2-1.0); Calcium 8.4 MG/DL (8.5-10.1); Osmolality,Calculated 279.4 MOS/KG (273-304); Potassium 4.4 MMOL/L (3.5-5.1); Total Protein 6.5 G/DL (6.4-8.3)
[2018-08-10 08:25] LABS: Platelet Estimate Normal
[2018-08-10 08:26] LABS: Anisocytosis 1+; Poikilocytosis 1+
[2018-08-10 08:27] LABS: Macrocytosis 1+
[2018-08-10 09:53] VITALS: BP 135/73
[2018-08-10] MEDS: DEXT 5% NACL 0.45% KCL 20 MEQ 20 MEQ/1,000 ML BAG IV SCH (10:22)
[2018-08-10] MEDS: LEVOFLOXACIN INJ 750 MG in PREMIX 1 EACH IV SCH (10:23)
[2018-08-10] MEDS: PANTOPRAZOLE 40 MG VIAL IV SCH (10:24)
[2018-08-10] MEDS: ZINC OXIDE PASTE 113 GM TUBE TOP SCH (10:33)
[2018-08-10] MEDS ORDERED: HEPARIN LOCK FLUSH 500 UNIT/5 ML SYRINGE IV PRN (11:21)
== END 2018-08-10 12:49 | disposition expired | DRG 374 ==
LOC: N.ED 15:22 → N.EDINP 21:36 → N.4E 22:04
PROVIDERS: ADMIT Internal Medicine; ATTEND Internal Medicine